=== PATIENT | female | born 1930 | race Caucasian/White ===

== ENCOUNTER 2017-08-28 15:37 | Emergency (ER) | payer OTHER ==
[~2017-08-28] VITALS: Ht 154.9 cm; Wt 64.9 kg
[2017-08-28] MEDS ORDERED: METFORMIN HCL750 MG (16:04)
[2017-08-28] MEDS ORDERED: LOSARTAN-HCTZ1 EAC2 (16:04)
[2017-08-28] MEDS ORDERED: ASPIR 8181 MG (16:05)
[2017-08-29] MEDS ORDERED: CEFTIN250 MG/5 M PO (06:22)
[2017-08-29] MEDS ORDERED: PEPCID40 MG PO (06:22)
[2017-08-29] MEDS ORDERED: LEVSIN/SL0.125 MG PO (06:22)
[2017-08-29] MEDS ORDERED: ZOFRAN ODT4 MG PO (06:22)
== END 2017-08-29 06:17 | disposition home or self-care (01) ==
LOC: ER 15:37
DX: K52.9 Noninfective gastroenteritis and colitis, unspecified (principal); N39.0 Urinary tract infection, site not specified